=== PATIENT | female | born 1980 | race Caucasian/White ===

== ENCOUNTER 2024-11-06 07:22 | Outpatient (CLI) | payer OTHER, SELFPAY ==
--- NOTE | ~2024-11-06 | CT_ITS ---
CT scan of the Neck Technique: 2.5 mm axial scans were obtained through the neck after intravenous administration of 75 c c Omnipaque 350. Coronal and sagittal reconstructions of the neck were obtained. Dose reduction techn ique was used on this scan by utilizing automated exposure control and iterative reconstruction techn ique. The dose-length product (DLP) was 544.59 mGy-cm. Clinical History: Obstructive sleep apnea Findings: There is no evidence of any significant cervical lymphadenopathy. Several small, nonenlarged jugulo- digastric and posterior cervical lymph nodes are noted bilaterally. Parapharyngeal spaces appear norm al bilaterally. The parotid and submandibular glands appear normal. The pharyngeal mucosal spaces appear normal. No soft tissue masses are seen in the neck. There is pro minence of the adenoids, resulting in relative narrowing of the nasopharynx, though this may be parti ally positional. The thyroid gland appears normal. Images of the lung apices reveal no abnormalities. Impression: Prominent adenoids with associated relative narrowing of the nasopharynx, although this may be partia lly positional in nature. Correlate clinically and with direct inspection as indicated. Reviewed, dictated and finalized at location M. Impression: Prominent adenoids with associated relative narrowing of the nasopharynx, altho ugh this may be partially positional in nature. Correlate clinically and with d irect inspection as indicated.
--- OUTSIDE RECORDS SUMMARY | 2024-11-06 07:25 | XMS_ITS | Clinical Summary ---
Author Organization [facility] [address] [place] [id number] Care Team Providers Care Facility Environmental Technician Name Role Phone Hany Hilario MD Primary Care Provider [phone] Allergies Active Allergy Reactions Criticality Noted Date Comments Ibuprofen Hives,Itching,Swelling Medium 03/28/2019 Medications gabapentin (NEURONTIN) 300 mg capsule Take 1 capsule (300 mg total) by mouth nightly 90 capsule 1 03/28/2019 Active Active Problems Problem Noted Date Diagnosed Date Morbid obesity with BMI of 70 and over, adult Tobacco abuse counseling 04/04/2019 Lumbar spondylosis with radiculopathy 03/28/2019 Surgical History Surgery Date Site/Laterality Comments CHOLECYSTECTOMY 06/27/1998 - 07/27/1998 Medical History Medical History Date Comments Headache Migraines Family History Medical History Relation Name Comments COPD Mother Cancer Mother Hypertension Mother Relation Name Status Comments Mother Social History Tobacco Use Types Packs/Day Years Used Date Smoking Tobacco: Every Day Smokeless Tobacco: Never Comments:.5 packs a day Personal Safety Answer Date Recorded Getting School Help Needed Not on file 07/24 Comments Unknown Sex and Gender Information Value Date Recorded Sex Assigned at Not on file Legal Sex Female 2:30 PM CDT Gender Identity Not on file Sexual Orientation Not on file Obstetrics History Last Filed Vital Signs Vital Sign Reading Time Taken Comments Blood Pressure 140/90 05/23/2019 2:55 PM TELEX OPERATOR Pulse - - Temperature - - Respiratory Rate - - Oxygen Saturation - - Inhaled Oxygen Concentration - - Weight 197.8 kg (436 lb) 05/23/2019 2:55 PM TELEX OPERATOR Height 167.6 cm (5' 5.98 ) 05/23/2019 2:55 PM CS T Body Mass Index 70.41 05/23/2019 2:55 PM TELEX OPERATOR Plan of Treatment Not on file Insurance Care Teams Facility Environmental Technician Relationship Specialty Start Date End Date Hany Hilario MD PCP - General Internal Medicine 03/27/19
--- OUTSIDE RECORDS SUMMARY | 2024-11-06 07:25 | XMS_ITS | Referral Summary ---
Author Organization [facility] [address] [place] [id number] Care Team Providers Care Full Time Name Role Phone Hany Hilario MD Primary Care Provider [phone] Allergies Active Allergy Reactions Criticality Noted Date Comments Ibuprofen Hives,Itching,Swelling Medium 03/28/2019 Medications gabapentin (NEURONTIN) 300 mg capsule Take 1 capsule (300 mg total) by mouth nightly 90 capsule 1 03/28/2019 Active Active Problems Problem Noted Date Diagnosed Date Morbid obesity with BMI of 70 and over, adult Tobacco abuse counseling 04/04/2019 Lumbar spondylosis with radiculopathy 03/28/2019 Social History Tobacco Use Types Packs/Day Years [...] on file Sexual Orientation Not on file Last Filed Vital Signs Vital Sign Reading Time Taken Comments Blood Pressure 140/90 05/23/2019 2:55 PM PROTOTYPE CARPENTER Pulse - - Temperature - - Respiratory Rate - - Oxygen Saturation - - Inhaled Oxygen Concentration - - Weight 197.8 kg (436 lb) 05/23/2019 2:55 PM PROTOTYPE CARPENTER Height 167.6 cm (5' 5.98 ) 05/23/2019 2:55 PM CS T Body Mass Index 70.41 05/23/2019 2:55 PM PROTOTYPE CARPENTER Plan of Treatment Not on file Insurance [facility] HMO/PPO Address: [place] [address] Care Teams Full Time Relationship Specialty Start Date End Date Hany Hilario MD PCP - General Internal Medicine 03/27/19
== END 2024-11-06 07:23 | disposition home or self-care (01) ==
PROVIDERS: Visit Provider Otolaryngology
DX: J35.2 Hypertrophy of adenoids (principal); J39.2 Other diseases of pharynx
CPT/HCPCS: 70491; Q9967

== ENCOUNTER 2024-12-03 14:13 | Outpatient (CLI) | payer OTHER, SELFPAY ==
--- NOTE | 2024-12-03 14:30 | ECG_ITS ---
Test Date: 2024-12-03 14:39:04 Measurements Intervals [place] Rate: 81 P: 38 W[place]: 174 QRS: 69 QRSD: 93 T: 34 QT: 378 QTc: 439 Interpretive Statements SINUS RHYTHM POOR R WAVE PROGRESSION BORDERLINE ST-T WAVE ABNORMALITY- INFERIOR LEADS BASELINE ARTIFACT- III, AVR, AVL, AVF BORDERLINE ECG No previous ECG available for comparison Electronically Signed On 12-03-2024 14:44:32 CDT by Raffaele Barton D.O.
== END 2024-12-03 14:14 | disposition home or self-care (01) ==
LOC: ANHSURGERY 14:21
PROVIDERS: Visit Provider Otolaryngology
DX: Z01.810 Encounter for preprocedural cardiovascular examination (principal); R94.31 Abnormal electrocardiogram [ECG] [EKG]; F17.210 Nicotine dependence, cigarettes, uncomplicated
CPT/HCPCS: 93005

== ENCOUNTER 2024-12-10 00:47 | Day surgery (SDC) | payer OTHER, SELFPAY ==
[2024-11-30 10:24] VITALS: BMI 48.4
--- NOTE | 2024-11-30 10:44 | PC.NURSE ---
Report to the Outpatient Waiting Room, entrance under the green pavilion located off [facility], at time __7:30AM on date ___12/10/24____. Planned Procedure Time: ___9:30AM___.? Time changes happen often and if your time is changed the preop area will call you the afternoon before. - You and your visitor will be asked to self-screen and do not enter if you have any COVID symptoms. Please call surgeon if you need to reschedule. - A mask is optional within the hospital at this time. Patients may have clear liquids (water, carbonated beverages, clear teas, apple juice) until 3 hours prior to surgery (6:30AM) with a maximum of 20 ounces. - No food from midnight until time of surgery and no smoking, or chewing tobacco (or any form of nicotine). No chewing gum, candy or mints. Take only the following medications with a SIP of water on the morning of surgery: INHALER AND/OR NEBULIZER NEEDED DO NOT STOP ANY OF YOUR OTHER PRESCRIPTION MEDICATIONS PRIOR TO SURGERY EXCEPT THE FOLLOWING Hold all vitamins and supplements for 3 days per anesthesiologist. Medications to discontinue per physician ____HOLD ALEVE PER DR ZAPATA Date to take last dose Please no make-up, nail georgian, hairspray, perfume, deodorant, or body powder the day of surgery.? No jewelry (including any body piercings) or valuables the day of surgery, leave them at home.? Please take a shower or bath the night before, or the morning of, surgery with an antibacterial soap.? Wear comfortable, loose fitting clothing.? - Jewelry must be removed prior to entering the operating room.? Rings and piercings that are not removed may be cut off. - The hospital will not accept responsibility for valuables.? - Please leave all valuables, including medications, at home the day of surgery. If you are going home after surgery, a licensed oil truck driver must drive you home.? - NO public transportation without another adult if you receive anesthesia. - We recommend that an adult stay with you for 24 hours following discharge. - We also recommend that you do not drive, make important decision, drink alcoholic beverages, or take any drugs that were not prescribed by your health care provider for at least 24 hours after your discharge time. Follow any additional instructions given to you from your surgeon. Telephone instructions given to ___PATIENT and asked if any additional questions and then verbalized understanding. Patient advised to call surgeon office or pre surgery nurse liaison [phone] if any additional questions.
[2024-12-10] VITALS (28 sets, daily range): BP systolic 135–166; BP diastolic 74–98; PULSE 67–92; RESP 12–20; TEMP 36.2–36.4; O2SAT 78–98; BMI 73.6
--- NOTE | 2024-12-10 07:14 | WPDANESEPPF ---
Anes - Initial Pre Proc Eval Procedure: Operation Date: 12/10/24 09:30 Proposed Procedures p Left Myringotomy Tube Placement, Adenoidectomy with Nasopharyngeal Biopsy - Christiano Minaya MD Date/Time: 12/10/24 07:14 Surgeon: Christiano Minaya MD Pre Op Diagnosis: Otitis media, adenoid hypertrophy Patient Data Age: 44 Gender: F Height: 1.68 m Weight: 136 kg Allergies Allergy/AdvReac Type Severity Reaction Status Date / Time ibuprofen Allergy Unknown HIVES Verified 12/10/24 07:43 Home Medications ?Medication ?Instructions ?Recorded ?Confirmed ?Type albuterol sulfate 2.5 mg/3 mL 2.5 mg inhalation Q4-6H PRN 11/30/24 11/30/24 History (0.083 %) solution for nebulization shortness of breath or wheezing albuterol sulfate 90 mcg/actuation 2 inh inhalation Q4-6H PRN 11/30/24 11/30/24 History aerosol inhaler shortness of breath or wheezing fluticasone propionate 50 1 spray intranasal Q12H PRN nasal 11/30/24 12/10/24 History mcg/actuation nasal congestion spray,suspension montelukast 10 mg tablet 10 mg PO DAILY 11/30/24 12/10/24 History (Singulair) naproxen sodium 220 mg capsule 440 mg PO BID-TID PRN pain 11/30/24 12/10/24 History (Aleve) tiotropium bromide 18 mcg capsule 1 cap inhalation Q6-8H PRN 11/30/24 11/30/24 History with inhalation device shortness of breath or wheezing Patient hx anesthesia problems: none Family hx anesthesia problems: none Results Review: All pre-operative results and documents have been reviewed as part of the pre-operative evaluation. [facility] Past Medical History Medical History (Updated 12/10/24 @ 08:18 by Kali Griffith DO) Bronchitis repeated Surgical History Surgical History (Updated 12/10/24 @ 07:15 by Kali Griffith DO) History of cholecystectomy Social History Social History Smoking packs per day: 0.75 Smoking cigarettes per day: 15.0 Years smoked: 30 Smoking pack-years: 22.50 Smoking status: Current every day smoker Tobacco type: cigarettes Additional smoking assessment comments: SMOKING 1/2 PACK/DAY CURRENTLY Alcohol intake: current Living arrangements: with family Additional living arrangements comments: WITH GRANDMOTHER Spiritual care concerns: No Anes - Eval Final PreProcedure Day of Procedure 12/10/24 07:14 Patient weight: super morbidly obese Heart: regular rate and rhythm Lungs: clear to auscultation Airway: Mallampati scale class III and special considerations poor dentition Neurological: alert and oriented Last oral intake: >/= 8 hours ASA classification: III Emergent: no Anesthetic plan: proceed Anesthesia type and monitoring: general ETT and standard monitoring Results Review: All pre-operative results and documents have been reviewed as part of the pre-operative evaluation. Informed Consent: The patient's anesthetic plan and its attendant risks and benefits were discussed with the patient/family/POA. Questions were solicited and answers provided to the satisfaction of the patient/family/POA.
[2024-12-10 07:50] LABS: BEDSIDEPREGUCG Negative (Negative)
[2024-12-10] MEDS: LACTATED RINGERS 1,000 ML 30 ML IV CONT (08:05)
[2024-12-10] MEDS: ACETAMINOPHEN 500 MG TABLET 1000 MG PO (08:10)
--- NOTE | 2024-12-10 08:56 | PM.IMHP ---
H&P: HPI History of Present Illness Date/Time: 12/10/24 08:56 Chief Complaint: left ETD, adenoid hypertrophy Review of Systems Review of Systems: All systems reviewed & are unremarkable except as noted in HPI and below PMFSH Past Medical History Medical History Bronchitis repeated Surgical History Surgical History History of cholecystectomy Social History Social History Smoking packs per day: 0.75 Smoking cigarettes per day: 15.0 Years smoked: 30 Smoking pack-years: 22.50 Smoking status: Current every day smoker Tobacco type: cigarettes Additional smoking assessment comments: SMOKING 1/2 PACK/DAY CURRENTLY Alcohol intake: current Living arrangements: with family Additional living arrangements comments: WITH GRANDMOTHER Spiritual care concerns: No Meds Home Medications and Allergies Home Medications ?Medication ?Instructions ?Recorded ?Confirmed ?Type albuterol sulfate 2.5 mg/3 mL 2.5 mg inhalation Q4-6H PRN 11/30/24 11/30/24 History (0.083 %) solution for nebulization shortness of breath or wheezing albuterol sulfate 90 mcg/actuation 2 inh inhalation Q4-6H PRN 11/30/24 11/30/24 History aerosol inhaler shortness of breath or wheezing fluticasone propionate 50 1 spray intranasal Q12H PRN nasal 11/30/24 12/10/24 History mcg/actuation nasal congestion spray,suspension montelukast 10 mg tablet 10 mg PO DAILY 11/30/24 12/10/24 History (Singulair) naproxen sodium 220 mg capsule 440 mg PO BID-TID PRN pain 11/30/24 12/10/24 History (Aleve) tiotropium bromide 18 mcg capsule 1 cap inhalation Q6-8H PRN 11/30/24 11/30/24 History with inhalation device shortness of breath or wheezing Allergies Allergy/AdvReac Type Severity Reaction Status Date / Time ibuprofen Allergy Unknown HIVES Verified 12/10/24 07:43 Vital Signs Vital Signs - 24 hr 12/10/24 07:25 Temperature 36.4 C L Pulse Rate 74 Respiratory Rate 20 Blood Pressure 149/89 H Pulse Oximetry 93 Oxygen Delivery Room Air Exam Narrative: left middle ear effusion. 100% obstructive adenoid hypertrophy obese. rest of exam wnl Assessment and Plan Assessment and plan (1) Chronic eustachian tube dysfunction: Code(s): H69.90 - Unspecified Eustachian tube disorder, unspecified ear Status: Acute (2) Adenoid hypertrophy: Code(s): J35.2 - Hypertrophy of adenoids Status: Acute Plan Christal has left ETD, adenoid hypertrophy. Here today for left tube placement, adenoidectomy and biopsy of adenoid/nasopharynx under anesthesia. r/b/a reviewed, all questions answered left ear marked.
--- NOTE | 2024-12-10 08:58 | WPDHPUPDATE1 ---
History and Physical Update Update Date/Time: 12/10/24 08:58 History and Physical has been reviewed, including an updated exam of the patient. There are NO changes in the patient's condition. Risks, benefits, and alternatives have been discussed and questions answered. Patient agrees to proceed with procedure.
[2024-12-10] MEDS: CIPROFLOXACIN HCL 0.3% OP SOLN 2.5 ML BTL 4 DROP EACH EAR (09:28)
--- NOTE | 2024-12-10 09:54 | S_PTH ---
PATIENT: Christal Hilton LOC: [facility] U#:[id number] AGE/SX: 44/F ROOM: RE12/10/[address]: Christiano Minaya MD : 1980 BED: DIS: 12/10/2024 SPEC #: [id number] RECD: 12/10/24 10:10 STATUS: GAMAL REMichelle #: [id number] CHRIS: 12/10/24 09:[address]: Christiano Minaya DEPT: [facility] RECD BY: Yessy Del Toro ENTERED: 12/10/24 10:10 SP TYPE: Surgical OTHR DR: AGRICULTURAL SCIENCES PROFESSOR PHYSICIAN Tissues: A - Debridement Tissue Procedures: Gross and Microscopic Level 3
--- NOTE | 2024-12-10 10:21 | P.OP_ITS ---
Procedure Note - Detailed Date of Procedure 12/10/24 Pre-op Diagnosis Otitis media, adenoid hypertrophy Post-op Diagnosis Same Procedure Performed left myringotomy with tube placement, nasopharyngeal biopsy, adenoidectoy Surgeon Christiano Minaya MD Anesthesia General Indications left ETD, adenoid hypertrophy Findings 100% obstructive adenoid hypertrophy. left TM retraction with serous effusion. grommet tube placed. Took specimen from adenoid before cauterizing the rest of it Description of Procedure Left ear was marked. Pt brought to OR and placed under GETA using glidescope. Prepped and draped in standard fashion for left tube and adenoidectomy. Attention directed to left ear. Under binocular microscopy, ear was examined Myringotomy incision made in anterior/inferior quadrant. serous effusion re moved. Grommet tube placed. Drops applied, cotton ball placed in EAC. Next, afrin soaked pledges placed bilaterally. Under endoscopic visualization, the adenoids were visualized and a biopsy was taken using forceps. This was sent for fresh specimen analysis. Then using suction cautery at 25 and spray, the adenoids were reduced completely leading to improvement of the patency of the nasopharynx. Minimal bleeding. Pt then returned to anesthsia who woke her up, extubated her and transferred her to PACU for recovery in stable condition without complication. Estimated Blood Loss 1 Drains No Packing No Pathology Yes (adenoid/nasopharynx) Complications No immediate complications Condition Stable Disposition PACU
[2024-12-10] MEDS: fentaNYL CITRATE INJ (*CRX) 100 MCG/2 ML VIAL 25 MCG IV PUSH ×2 (10:27→10:29)
--- NOTE | 2024-12-10 10:57 | SUR.PHASEI ---
RN spoke w/ Dr. Orosco and made him aware patient was currently on BIPAP in PACU.
--- NOTE | 2024-12-10 13:04 | SUR.PHASEI ---
1303 - dr. mak aware of pt on RA for 15 minutes with o2 sats at 96%. ok to send to OP recovery
== END 2024-12-10 13:40 | disposition home or self-care (01) ==
PROVIDERS: Visit Provider Otolaryngology
PROC: (CPT 42831; principal; 2024-12-10 09:30)
DX: J35.2 Hypertrophy of adenoids (principal); H66.92 Otitis media, unspecified, left ear; H69.90 Unspecified Eustachian tube disorder, unspecified ear; F17.210 Nicotine dependence, cigarettes, uncomplicated; E66.01 Morbid (severe) obesity due to excess calories; Z68.45 Body mass index [BMI] 70 or greater, adult
CPT/HCPCS: 42831; 69436; 88304; 94640; A9270; J1100; J2003; J2004; J2250; J2405; J2704; J3010; J7120